=== PATIENT | male | born 1985 | race Caucasian/White ===

== ENCOUNTER 2022-05-16 08:53 | Outpatient (CLI) | payer OTHER, SELFPAY ==
--- NOTE | 2022-05-16 09:15 | CRLHL7_ITS ---
For Patients: As a result of the Century Cures Act, medical imaging exams and procedure reports are released immediately into your electronic medical record. You may view this report before your referring provider. If you have questions, please contact your health care provider. Indication: Left shoulder pain. Procedure : Informed consent was obtained. The site was marked. Time-out was performed. The skin of the left shoulder was cleansed with ChloraPrep. A sterile drape was placed. 8 cc of 1 percent lidocaine was administered for superficial anesthesia. Subsequently a 22 gauge spinal needle was introduced into the left shoulder joint under intermittent fluoroscopic guidance. Injection of 2 cc nonionic Omnipaque 240 contrast confirmed intra-articular location. Subsequently 11 cc of dilute gadolinium were injected. The needle was removed and hemostasis achieved with direct pressure. A dressing was placed. The patient tolerated the procedure well without immediate complication and was immediately sent to MRI for imaging. Total fluoroscopy time 43 seconds. Impression: Successful fluoroscopically guided left shoulder arthrogram for MRI. Dictated by Abilio Swenson MD @ 05/16/2022 10:36:17 AM (Electronically Signed)
--- NOTE | 2022-05-16 10:15 | MR_ITS ---
[address] [address] Phone:?[phone] Fax:?[phone] Referring Physician Information: Brendan Tejeda M.D. [address] [facility] [address] Phone:?[phone] Fax:?[phone] Patient:Kira Espinoza D.O.B:?1985 Sex:?Male Phone:?[phone] [facility] MRN:?[id number] Exam Date:?05/16/2022 ? EXAM: MR ARTHROGRAM of the LEFT SHOULDER CLINICAL HISTORY: Left shoulder pain. Evaluate for labral tear. COMPARISON: Plain radiographs 05/07/2022. TECHNICAL: Exam performed after fluoroscopically-guided gadolinium arthrography of the glenohumeral joint of the left shoulder, reported separately. MRI sequences of the left shoulder: coronal obliques: PD, T2FS, T1FS sagittal obliques: PDFS, T2 axials: PD, PDFS FINDINGS: Bones: No fracture or suspicious bone marrow signal abnormality. Coracoacromial arch: Acromion: No os acromiale. Type I-II acromion. Acromiohumeral space: The bony distance is unremarkable. Coracohumeral space: The bony distance is unremarkable. Acromioclavicular joint: Mild to moderate degenerative changes with mild inferior hypertrophy. Coracoclavicular ligament: The coracoclavicular ligament is intact. Rotator cuff and muscles/tendons: Supraspinatus: The supraspinatus tendon and muscle are intact. Infraspinatus: Mild tendinopathy. No muscular atrophy. There is edema-like signal within the infraspinatus muscle. Teres minor: There is edema-like signal within the teres minor muscle. The teres minor tendon is intact. Subscapularis: 5 x 5 mm concealed slitlike split longitudinal intrasubstance/interstitial tear within the superior portion of the subscapularis tendon insertion superimposed upon mild subscapularis tendinopathy best seen on axial series 4 image 16 and sagittal series 8 image 10. No atrophy of the subscapularis muscle. Labrum: There is complex tear of the labrum from the 10:30 o'clock position posterosuperiorly through 6 o'clock position inferiorly with an associated 3.1 cm in craniocaudad dimension by 1.1 cm in AP dimension by 3.2 cm in transverse dimension posterior paralabral cyst extends into the spinoglenoid notch. Proximal biceps tendon, long head and short heads: The long and short heads of the proximal biceps tendon are intact. Glenohumeral joint: Intra-articular contrast is present secondary to arthrogram injection. 1.0 cm craniocaudad dimension by 0.5 cm in transverse dimension area of near full-thickness chondral loss over the posterior portion of the glenoid. There is a 5 x 5 mm focus of near full-thickness chondral loss over the superomedial portion of the humeral head best seen on coronal series 5 image 14 and sagittal series 8 image 14. No convincing evidence of capsular edema or thickening. Bursae: Subacromial-subdeltoid: Minimal bursitis. Subcoracoid: No convincing subcoracoid bursal thickening/bursitis. IMPRESSION: 1. Complex labral tear from the 10:30 o'clock position posterosuperiorly through 6 o'clock position inferiorly. Associated 3.1 x 1.1 x 3.2 cm posterior paralabral cyst extending into the spinoglenoid notch. 2. Edema-like signal within the infraspinatus and teres minor muscles likely reflects denervation change secondary to compression of the suprascapular nerve within the spinoglenoid notch by the posterior paralabral cyst. 3. 5 x 5 mm concealed slitlike split longitudinal intrasubstance/interstitial tear within the superior portion of the subscapularis tendon insertion superimposed upon mild subscapularis tendinopathy. 4. Mild infraspinatus tendinopathy. 5. No articular or bursal surfacing or retracted rotator cuff tendon tear. No rotator cuff muscular atrophy. 6. 1.0 x 0.5 cm area of near full-thickness chondral loss over the posterior portion of the glenoid and a 0.5 x 0.5 cm focus of near full-thickness chondral loss over the superomedial portion of the humeral head. 7. Minimal subacromial/subdeltoid bursitis. 8. Mild to moderate acromioclavicular joint osteoarthritis with mild inferior hypertrophy. 9. Intact biceps tendon. RCB Electronically signed on 05/16/2022 11:53:00 AM by Arash Main M.D.
== END 2022-05-16 08:54 | disposition home or self-care (01) ==
LOC: RAD 08:54
PROVIDERS: Visit Provider Orthopaedic Surgery Sports Medicine
DX: M25.512 Pain in left shoulder (principal); S43.402A Unspecified sprain of left shoulder joint, initial encounter; M75.52 Bursitis of left shoulder; M19.012 Primary osteoarthritis, left shoulder
CPT/HCPCS: 23350; 73222; 77002; A9575; Q9966

== ENCOUNTER 2022-08-14 07:11 | Day surgery (SDC) | payer OTHER, SELFPAY ==
[2022-08-14] VITALS (16 sets, daily range): BP systolic 112–142; BP diastolic 58–79; PULSE 55–76; RESP 14–22; TEMP 36.4–36.7; O2SAT 94–98; BMI 27.1
[2022-08-14] MEDS: LACTATED RINGERS 1000 ML 1,000 ML 100 ML IV (07:00)
[2022-08-14] MEDS: SODIUM CHLORIDE 0.9 % (FLUSH) 10 ML SYRINGE IVF (07:58)
[2022-08-14] MEDS: MIDAZOLAM HCL 1 MG/ML inj IVP (08:14)
[2022-08-14] MEDS: fentaNYL 100 MCG/2 ML inj IVP (08:15)
--- NOTE | 2022-08-14 08:17 | SUR.PREOP ---
TIME?OUT:?08 PT/RN/MDA?VERIFICATION?OF?SURGICAL?SITE Left Shoulder,?PROCEDURE nerve block,?AND?CONSENT OBTAINED?PRIOR?TO?INVASIVE?PROCEDURE.
--- NOTE | 2022-08-14 09:27 | W.ANESCHARGE ---
Anesthesia Charges Start Date/Time Anesthesia Start Date: 08/14/22 Anesthesia Start Time: 08:40 Stop Date/Time Anesthesia Stop Date: 08/14/22 Anesthesia Stop Time: 10:51
--- NOTE | 2022-08-14 09:27 | W.PM.NB ---
Nerve Block Nerve Block Time Seen by Provider: 08:16 Date Seen: 08/14/22 Type of block requested by surgeon for post-operative analgesia: supraclavicular Side: left Time out performed: Yes Verification of patient name: Yes Verification of date of : Yes Site marking: site marked Name of person performing procedure: Adan Continuous monitoring Was continuous monitoring of O2 sat, B/P, cardiac rehabilitation program director, recorded every 15 minutes?: Yes Procedure Checklist: sterile prep, needles and gloves Ultrasound guided. Images saved: Yes Medications given in 5ml increments after negative aspiration: Ropivicaine %: 0.5 mL: 20 Needle gauge: 22 Decadron (mg): 10 Precedex (mcg): 25 Patient tolerated procedure well: Yes Block Charges Block Charge (with Pro Fee): Brachial Plexus Use of Ultrasound Machine for Block: Yes- US Guidance/pain block
--- NOTE | 2022-08-14 10:33 | P.ORPRC_ITS ---
Procedure Note Date of procedure: 08/14/22 Procedure: PREOPERATIVE DIAGNOSES: 1. Left shoulder pain and associated posterior labral tearing and paralabral cyst formation causing suprascapular nerve impingement resulting in infraspinatus muscle atrophy. 2. 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 Left shoulder pain and associated posterior labral tearing and paralabral cyst formation causing suprascapular nerve impingement resulting in infraspinatus muscle atrophy. 2. 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 Left shoulder arthroscopic reverse Bankart repair (labral repair/capsular repair) 2. Left shoulder arthroscopic microfracture humeral head (7 x 7 mm diameter region) 3. Left shoulder arthroscopic limited glenohumeral debridement including debridement of labral tissue and glenoid chondral tissue SURGEON: Brendan Tejeda MD ASSOCIATE PROFESSOR OF RADIOLOGY: Keegan Francois PA-C. Of note, a skilled medical records assistant was critical for this case to aide in patient positioning, suture manipulation, arm positioning, instrument positioning, and closure. ANESTHESIA: General plus preoperative supraclavicular block. EBL: Less than 5 mL IMPLANTS: Arthrex 1.8 mm FiberTak RC (x4) COMPLICATIONS: None evident INDICATIONS: The patient is a pleasant, 37-year-old male who has experienced left shoulder pain and external rotation weakness. Physical exam was concerning for suprascapular nerve impingement given infraspinatus isolated weakness. MRI was obtained indeed confirmed a posterior labral tear with a spinoglenoid notch paralabral cyst and subsequent MRI atrophy. Given these findings, surgery is indicated to decompress spinal glenoid notch cyst and provide posterior labral repair. FINDINGS: Exam under anesthesia revealed stable shoulder with grade 1 anterior and posterior drawer. The diagnostic arthroscopy revealed grade 4 chondromalacia posterior central glenoid in the long thin path measurements noted above. Grade 4 chondromalacia humeral head in a circular pattern with dimensions noted above. PROCEDURE: Following a thorough discussion of risks, benefits, and alternatives, consent was obtained and the operative shoulder was marked. The patient was brought to the operating room and placed supine on the operating table. Induction of anesthesia was completed after preoperative supraclavicular block was administered in preop holding. Appropriate time out was performed identifying proper patient, site, and procedure. 2 g IV Ancef was administered within 1 hour of incision preoperatively. The left upper extremity was prepped and draped in the appropriate sterile fashion using ChloraPrep. This was after the patient was positioned in the la teral decubitus position with all bony prominences well padded and axillary roll placed. The arm was placed with 10 lb of traction in approximately 35-45 degree angle. The shoulder was insufflated with 20mL of normal saline via an 18g spinal needle from a posterior approach. An 11 blade skin incision allowed a blunt trochar to be inserted and diagnostic arthroscopy to be performed with the findings as noted above. An anterior portal was established with an outside in technique. This allowed the probe to be inserted and confirm the diagnostic arthroscopic findings. Both the anterior and posterior portals were cannulated with a general a cannula. Preparation of the posterior labral tear was performed. A liberator elevator was utilized for tissue preparation along with a rasp and shaver. A shaver was also utilized for debridement of the posterior inferior labral tissue and the glenoid articular cartilage loose flap tissue. For repair, for FiberTak RC anchors were ventral utilized. We began inferiorly on the glenoid. The posterior portion of the inferior glenohumeral ligament and the labrum were captured with the suture Lasso after the anchor was placed. The knotless mechanism was engaged and final tensioning was reserved until all anchors had been placed. 3 more anchors were placed margin of the clock face. We started approximately 5 o'clock and subsequent anchors were placed at approximately 4 o'clock, 3 o'clock, and 2 o'clock. Excellent reapproximation of the labral tissue onto the glenoid was achieved. We were able to cover approximately half of the posterior glenoid chondral defect. It would not have been anatomically appropriate to cover the entire chondral defect. When anchors had been completed, final tensioning was performed. Excellent reapproximation of the tissue was achieved. Excellent stability of the shoulder was maintained. We then turned our attention of the humeral head chondral defect. An ArthRadarFind power pick device was inserted through the anterior cannula and a microfracture was performed of this tissue following debridement of the calcified cartilage layer with a ring curette. The bony debris was then evacuated with the torpedo shaver. Instruments were removed, excess fluid was drained, and closure performed with 4 Monocryl and Steri-Strips. Dressings were applied. Sling was applied. The patient was awoken from anesthesia and transferred to the PACU in stable condition. A skilled medical records assistant was critical for this case to aid in patient positioning, limb positioning, skill to manipulate arthroscopic instruments and camera, suture management, patient safety, and closure. PLAN: 1. Elbow, forearm, wrist and digit range of motion as tolerated. 2. Encouraged ice. 3. Percocet for pain as needed. 4. Sling at all times except for ROM and showering. 5. Follow up with PA visit in 1-2 weeks for wound check. May begin gentle motion in a swimming pool after scabs are gone. Refrain from a swimming action. Refrain from cross-body work with the operative extremity, and try to refrain from repetitive overhead use.
[2022-08-14] MEDS: EPINEPHrine 1 MG in SODIUM CHLORIDE IRRIG SOLUTION 3,000 ML 9003 MG IRRIGATION (10:35)
--- NOTE | 2022-08-14 10:49 | W.ANESCHARGE ---
Anesthesia Charges Start Date/Time Anesthesia Start Date: 08/14/22 Anesthesia Start Time: 08:40 Stop Date/Time Anesthesia Stop Date: 08/14/22 Anesthesia Stop Time: 10:51
== END 2022-08-14 13:00 | disposition home or self-care (01) ==
PROVIDERS: Visit Provider Orthopaedic Surgery Sports Medicine
PROC: (CPT 29806; principal; 2022-08-14 08:30)
DX: S43.432A Superior glenoid labrum lesion of left shoulder, initial encounter (principal); M25.812 Other specified joint disorders, left shoulder; M94.212 Chondromalacia, left shoulder
CPT/HCPCS: 29806; 29822; 01630; 64415; 76942; C1713; J0171; J0330; J1100; J2250; J2405; J2704; J2795; J3010; J7120; L3670

== ENCOUNTER 2023-02-21 10:45 | Outpatient (RCR) | payer OTHER, SELFPAY | END 2023-06-21 23:59 | disposition home or self-care (01) | PROVIDERS: Visit Provider Orthopaedic Surgery Sports Medicine | DX: M67.912 Unspecified disorder of synovium and tendon, left shoulder (principal); M19.012 Primary osteoarthritis, left shoulder; S43.432A Superior glenoid labrum lesion of left shoulder, initial encounter; Z98.890 Other specified postprocedural states; M25.312 Other instability, left shoulder; M25.512 Pain in left shoulder; Z74.09 Other reduced mobility; R53.1 Weakness; Z51.89 Encounter for other specified aftercare | CPT/HCPCS: 97110; 97161 ==

== ENCOUNTER 2024-03-24 07:06 | Outpatient (CLI) | payer BC, SELFPAY ==
--- OUTSIDE RECORDS SUMMARY | 2024-03-24 07:09 | XMS_ITS | Clinical Summary ---
Author Organization [facility] Address [place], [place] [address] Care Team Providers Care Easement Man Name Role Phone Deandre Ambrose MD Unavailable Unavailab le Pcp, No Primary Care Provider Unavailabl e Allergies No known active allergies Medications No known medications Active Problems No known active problems Encounters Date Type Department Care Team Description 01/14/2024 7:20 AM CDT Procedure Only [facility] [address] [place] [address] Luis Carlos Crane MD Musculoskeletal Problem (Ultrasound guided... 01/14/2024 Travel 12/30/[address] [facility] [address] [place] [address] Luis Carlos Crane MD Appointment (Left Knee) from Last 3 Months Immunizations Name Administration Dates Next Due COVID-19 vaccine (Moderna 100mcg/0.5mL) MICHAEL JIMENES 07/19/2020 DT (Age < 7 years) 10/11/1999 DTP 10/11/1991, 8,1986, 987,1986 HIB PRP-T (ActHIB,Hiberix) 03/12/1988 Hepatitis B (Adult) 12/09/2007 Hepatitis B (Peds) 12/18/1999,10/11/1999 MMR 10/11/1991,01/16/1988 Oral Polio Vaccine 10/11/1991, 8,1986, 987 Tdap 07/29/2014 Family History Medical History Relation Name Comments Other Father bilateral knee repair Other Mother hip replacement , knee surg, shoulder surgery Diabetes Paternal Grandfather Relation Name Status Comments Brother 1 Alive Brother 2 Alive Father Alive Mother Alive Paternal Grandfather Social History Tobacco Use Types Packs/Day Years Used Date Smoking Tobacco: Never Smokeless Tobacco: Never Tobacco Cessation:Counseling Given: Yes Alcohol Use Standard Drinks/Week Comments Yes 0 (1 standard drink = 0.6 oz pur e alcohol) social Social Connections Answer Date Recorded Frequency of Communication with Friends and Fami ly Not on file 08/27/2023 Financial Resource Strain Answer Date R ecorded Difficulty of Paying Living Expenses 3 07/31/2022 Difficulty of Paying Living Expenses Not on file 07/31/2022 Food Insecurity Answer Date Recorded Worried About Running Out of Food in the Last Ye ar 1 07/31/2022 Transportation Needs Answer Date Record ed Lack of Transportation (Medical) 1 07/31/2022 Housing Stability Answer Date Recorded Unable to Pay for Housing in the Last Year 1 07/31/2022 Sex and Gender Information Value Date Recorded Sex Assigned at Not on file Gender Identity Not on file Sexual Orientation Not on file Obstetrics History Last Filed Vital Signs Vital Sign Reading Time Taken Comments Blood Pressure 127/73 01/14/2024 7:36 AM CDT Pulse 52 01/14/2024 7:36 AM CDT Temperature 36.6 C (97.8 F) 01/14/2024 7:36 AM CDT Respiratory Rate - - Oxygen Saturation 99% 01/14/2024 7:36 AM CDT Inhaled Oxygen Concentration - - Weight 83.5 kg (184 lb) 07/31/2022 2:23 PM CDT Height 177.8 cm (5' 10) 07/25/2020 9:36 AM CDT Body Mass Index 26.4 07/25/2020 9:36 AM CDT Plan of Treatment Health Maintenance Due Date Last Done Comments HIV for age 15-65 2001 Hepatitis C screening for ag e 18-79 2004 Depression screening for age 12+ 12/19/2017 12/19/2016 Lipids for age 35-44 2021 BMI (ht and wt on same day) for age 18+ 07/25/2021 07/25/2020, 07/01/2019, 12/19/2016 COVID-19 vaccine series ( season) 2023 05/24/2021, 08/16/2020, 07/19/2020 Influenza for age 9-49 12/28/2023 Tetanus booster 07/29/2024 07/29/2014 Tdap Completed 07/29/2014 Pneumococcal series for age 6-64 Aged Out No longer eligible b ased on patient's age to complete this topic Procedures Procedure Name Priority Date/Time Associated Diagnosis Comments BEDSIDE US STUDY ARCHIVE Routine 01/14/2024 11:06 AM CDT Synovial cyst of popliteal space (Brito), left knee from Last 3 Months Results * BEDSIDE US STUDY ARCHIVE (01/14/2024 11:06 AM CDT) Narrative Elly Rossi - 01/14/2024 11:06 AM CDT The patient was seen for ultrasound guided injection by Dr. Luis Carlos Crane. Ultrasound was not used for diagnostic purposes, but to guide the needle placement and document the position of the injection. See patient's EPIC encounter for the detail of the procedure; see TRACEY for saved images of the injection. Luis Carlos Crane MD PROCEDURE ORD from Last 3 Months Care Teams Easement Man Relationship Specialty Start Date End Date Pcp, No . PCP - General 12/18/16 Deandre Ambrose MD 01/01/11
--- NOTE | 2024-03-24 07:15 | MR_ITS ---
[address] [address] Phone:?[phone] Fax:?[phone] Referring Physician Information: Brendan Tejeda M.D. [address] [address] Phone:?[phone] Fax:?[phone] Patient:Kira Espinoza D.O.B:?1985 Sex:?Male Phone:?[phone] [facility] MRN:?[id number] Exam Date:?03/24/2024 EXAM: MRI EXAMINATION OF THE LEFT KNEE CLINICAL INFORMATION: Left knee pain. No specific injury. History of surgery. Evaluate popliteal cyst. TECHNICAL INFORMATION: Coronal PD and STIR. Axial PD and T2 fat saturation. Sagittal PD and PD fat saturation images acquired. Comparison is made with December 10, 2016. INTERPRETATION: Bones: Patchy mild subchondral edema signal involves the medial compartment. No evidence for an occult fracture or AVN. No other abnormal bone marrow edema pattern is identified. Ligaments and tendons: The medial collateral ligament is intact, without acute sprain or tear. The iliotibial band, fibular collateral ligament, biceps femoris tendon and popliteus tendon all are intact. The anterior cruciate ligament is intact without acute sprain or tear. The posterior cruciate ligament is intact. Extensor Mechanism: The patellar and quadriceps tendons are intact. There is a 3.8 cm craniocaudal by 3.9 cm mediolateral ovoid focus of intermediate and low signal intensity tissue situated superficial to the patella and proximal patellar tendon. The medial and lateral retinacula are intact. Knee Joint: There is a small knee joint effusion. There is a moderately large popliteal cyst measuring 5.4 cm craniocaudal, slightly smaller compared to the prior exam. There is no discrete loose body seen within the joint. Medial Compartment: Abnormal intrasubstance signal within the body of the medial meniscus. There is an 8 mm segment of shallow horizontal tearing involving the inner portion and apical margin of the posterior horn. No evidence for a flap fragment. There is a lobular a 1.6 centimeters soft tissue ganglion cyst adjacent to the anterior root insertion of the meniscus. Predominant grade 3 chondromalacia through the central weightbearing surface continuing just posterior to the weightbearing surface of the medial femoral condyle. There are additional grade 3 changes of chondromalacia centered anterior to the mid surface of the tibial plateau. These findings have progressed. Lateral Compartment: There is no evidence for discrete lateral meniscal tear. No displaced flap fragment or parameniscal cyst. There is no focal chondral defect. No other significant changes of chondromalacia. Patellofemoral articulation: There is an 8 mm segment of grade II chondromalacia involving the central midline patella. No other significant chondromalacia. CONCLUSION: 1. Approximate 8 mm segment of shallow horizontal tearing involving the inner portion and apical margin of the posterior horn of the medial meniscus. There is a 1.6 cm soft tissue ganglion cyst adjacent to the anterior root insertion. 2. Grade III medial compartment chondromalacia patchy mild reactive subchondral edema signal. This has progressed. 4. There is a 5.4 cm moderately large popliteal cyst. This is measuring slightly smaller compared to the prior exam. 5. There is a small segment of grade II patellar chondromalacia. 6. Intermediate and low T2 signal intensity soft tissue thickening superficial to the patella and proximal patellar tendon, in keeping with old prepatellar bursitis. KES Electronically signed on 03/24/2024 11:04:00 AM by Irvin Turner M.D.
== END 2024-03-24 07:07 | disposition home or self-care (01) ==
LOC: MRI 07:07
PROVIDERS: Visit Provider Orthopaedic Surgery Sports Medicine
DX: M25.562 Pain in left knee (principal); M94.262 Chondromalacia, left knee; S83.242A Other tear of medial meniscus, current injury, left knee, initial encounter; M71.22 Synovial cyst of popliteal space [Baker], left knee
CPT/HCPCS: 73721